=== PATIENT | male | born 1940 | race Caucasian/White ===

== ENCOUNTER → 2018-02-24 | Outpatient (CLI) | payer BC, MEDICARE | END | disposition home or self-care (01) | LOC: LABWHC1 09:56 | PROVIDERS: ATTEND Urology | DX: R97.20 Elevated prostate specific antigen [PSA] (principal) | CPT/HCPCS: 36415; 84153 ==

== ENCOUNTER → 2018-09-24 | Outpatient (CLI) | payer MEDICARE | END | disposition home or self-care (01) | LOC: LABWHC1 15:20 | PROVIDERS: ATTEND Urology | DX: R97.20 Elevated prostate specific antigen [PSA] (principal) | CPT/HCPCS: 36415; 84153 ==

== ENCOUNTER → 2019-09-24 | Outpatient (CLI) | payer MEDICARE | LOC: LABWHC1 10:16 | PROVIDERS: ATTEND Urology | DX: R97.20 Elevated prostate specific antigen [PSA] (principal) | CPT/HCPCS: 36415; 84153 ==

== ENCOUNTER 2023-04-19 10:21 | Emergency (ER) | payer MEDICARE ==
[2023-04-19] MEDS ORDERED: LIDOCAINE/EPINEPHR/TETRACAINE 5 ML BOTTLE TOPICAL ONE (10:29)
[2023-04-19] MEDS ORDERED: LIDOCAINE 1%-EPI 1:100,000 50 ML VIAL SQ ONE (10:29)
--- NOTE | 2023-04-19 10:42 | ED ---
Wound/Laceration HPI - General Chief Complaint: Skin/Abscess/Foreign Body Stated Complaint: Bleeding from Wound on L Ankle Time Seen by Provider: 04/19/23 10:22 Source: patient, RN notes reviewed Mode of arrival: EMS Limitations: no limitations - History of Present Illness Initial Comments: This is an 82-year-old male who presents to the emergency department for a bleeding wound on his left ankle. States that he tries to keep his body "very alkalotic" to flush out toxins. In this process, he has had a wound to the left ankle that popped up. States that his body is trying to push material out through this wound, and he occasionally picks at it. He tried to pick at this wound today, and it subsequently started to bleed. He had been unable to get the bleeding to stop, and subsequently called EMS. Denies any pain associated with this. He is not on any blood thinners, but states that he takes a pineapple extract that acts as a natural blood thinner. Denies any fevers, chills, sore throat, cough, dyspnea, chest pain, palpitations, abdominal pain, nausea, vomiting, diarrhea, back pain, or headaches. - Related Data Allergies Allergy/AdvReac Type Severity Reaction Status Date / Time No Known Allergies Allergy Verified 04/19/23 10:42 Review of Systems ROS Statement: Those systems with pertinent positive or pertinent negative responses have been documented in the HPI. ROS Other: All systems not noted in ROS Statement are negative. General Exam Limitations: no limitations General appearance: alert, in no apparent distress Head exam: Present: atraumatic, normocephalic, normal inspection Respiratory exam: Present: normal lung sounds bilaterally. Absent: respiratory distress, wheezes, rales, rhonchi, stridor Cardiovascular Exam: Present: regular rate, normal rhythm, normal heart sounds. Absent: systolic murmur, diastolic murmur, rubs, gallop, clicks Extremities exam: Present: other (1 cm circular wound to the medial aspect of the left ankle with active bleeding from a superficial vein.) Neurological exam: Present: alert, oriented X3, CN II-XII intact Psychiatric exam: Present: normal affect, normal mood Course Vital Signs 04/19/23 04/19/23 04/19/23 10:22 10:39 11:45 Temperature 96.8 F L 96.8 F L 97.6 F Pulse Rate 73 74 67 Respiratory 18 18 18 Rate Blood Pressure 188/105 188/105 190/91 O2 Sat by Pulse 99 99 98 Oximetry Procedures - Laceration Laceration #1 Consent Obtained: verbal consent Indication: laceration Site: lower extremity Size (cm): 1 Description: linear Depth: simple, single layer Type of Sutures: nylon Size of Sutures: 5-0 Number of Sutures: 2 (2 figure of 8 sutures) Technique: simple, interrupted Medical Decision Making - Medical Decision Making This is an 80-year-old male who presents to the emergency department for a bleeding wound. Was pt. sent in by a medical professional or institution? @ -No Did you speak to anyone other than the patient for history? @ -No Did you review nursing and triage notes? @ -Yes, and I agree, it is accurate with regards to the patient's symptoms. Were old charts reviewed? @ -No Differential Diagnosis? @ -Differential Excessive Bleeding: Venous injury, arterial injury, coagulopathy, this is not meant to be an all- inclusive list. EKG interpreted by me (3pts min.)? @ -Not obtained X-rays interpreted by me (1pt min.)? @ -Not obtained CT interpreted by me (1pt min.)? @ -Not obtained U/S interpreted by me (1pt. min.)? @ -Not obtained What testing was considered but not performed? (CT, X-rays, U/S, labs)? Why? @ -None What meds were considered but not given? Why? @ -None Did you discuss the management of the patient with other professionals? @ -No Did you reconcile home meds? @ -No Was smoking cessation discussed for >3mins.? @ -No Was critical care preformed (if so, how long)? @ -No Were there social determinants of health that impacted care today? How? (Homelessness, low income, unemployed, alcoholism, drug addiction, transportation, low edu. Level, literacy, decrease access to med. care, [facility], rehab)? @ -No Was there de-escalation of care discussed even if they declined? (Discuss DNR or withdrawal of care, Hospice)? @ -No What co-morbidities impacted this encounter? (DM, HTN, Smoking, COPD, CAD, Cancer, CVA, Hep., AIDS, mental health diagnosis, sleep apnea, morbid obesity)? @ -None Was patient admitted / discharged? @ -Discharged. Physical examination was most consistent with a bleeding varicose vein. LET was applied initially, which did slow the bleeding substantially. A [id number] suture was then used to tie this off and the bleeding stopped entirely. His blood pressure was elevated on arrival. Patient does not take any blood pressure medication at home or any prescription medication whatsoever. Patient advised that he will need to follow-up on this with his primary care provider. Also recommended checking his blood pressure at home and keeping a lot of these values. We also discussed risks of untreated elevated blood pressure, including heart attacks and strokes. Patient expresses understanding. He will otherwise return in 7-10 days for suture removal. Undiagnosed new problem with uncertain prognosis? @ -None Drug Therapy requiring intensive monitoring for toxicity (Heparin, Nitro, Insulin, Cardizem)? @ -None Were any procedures done? @ -Sutures for bleeding varicose vein Diagnosis/symptom? @ -Bleeding wound Acute, or Chronic, or Acute on Chronic? @ -Acute Uncomplicated (without systemic symptoms) or Complicated (systemic symptoms)? @ -Uncomplicated Side effects of treatment? @ -None Exacerbation, Progression, or Severe Exacerbation] @ -Not applicable Poses a threat to life or bodily function? @ -No Return precautions reviewed in depth, the patient is instructed to return to the emergency department with any new, worsening, or concerning symptoms. Patient verbalized understanding. This case was discussed in detail with the attending ED physician, Dr. Trujillo. Presentation, findings, and treatment plan discussed in detail as well. Disposition Clinical Impression: Bleeding from wound, Elevated BP without diagnosis of hypertension Disposition: HOME SELF-CARE Instructions (If sedation given, give patient instructions): Care For Your Stitches (ED) Additional Instructions: Return to the emergency department with any new, worsening, or concerning symptoms and in 7-10 days for removal of the stitches. Do not pick at this wound, as you may cause this problem to recur. Is patient prescribed a controlled substance at d/c from ED?: No Referrals: Dimitry Bryan [Primary Care Provider] - 1-2 days
[2023-04-19 10:46] VITALS: RESP 18
[2023-04-19 12:01] VITALS: BP 190/91; PULSE 67; TEMP 97.6
== END 2023-04-19 11:49 | disposition home or self-care (01) ==
LOC: EC 10:21
DX: S91.002A Unspecified open wound, left ankle, initial encounter (principal); I83.892 Varicose veins of left lower extremity with other complications; R03.0 Elevated blood-pressure reading, without diagnosis of hypertension; X58.XXXA Exposure to other specified factors, initial encounter
CPT/HCPCS: 12001; 99283

== ENCOUNTER 2023-10-20 11:52 | Emergency (ER) | payer MEDICARE ==
--- NOTE | 2023-10-20 12:06 | ED ---
Syncope HPI - General Chief Complaint: Syncope Stated Complaint: Dizziness Time Seen by Provider: 10/20/23 11:54 Source: patient, EMS, RN notes reviewed Mode of arrival: EMS Limitations: no limitations - History of Present Illness Initial Comments: This is an 82-year-old male who presents to the emergency department for a syncopal episode. Patient was standing up at [employer] and they were on the third song of the morning. He had started to feel dizzy and went to sit down. He took 2 glucose tablets, thinking his sugar might of dropped. He then woke up laying along the [employer] bench and was told that he passed out temporarily. When he sat up he drank orange juice. He then had his blood sugar checked after both glucose tablets and orange juice and was told that it was about 264. Other than the dizziness he did not have any symptoms prior to the syncopal episode. Denies any chest pain or shortness of breath. This has happened to him in the past when his blood sugar was low. States that he currently feels fine and has no complaints. MD Complaint: loss of consciousness - Related Data Previous Rx's Medication Instructions Recorded amLODIPine [Norvasc] 5 mg PO DAILY #30 tab 10/20/23 Allergies Allergy/AdvReac Type Severity Reaction Status Date / Time No Known Allergies Allergy Verified 10/20/23 11:59 Review of Systems ROS Statement: Those systems with pertinent positive or pertinent negative responses have been documented in the HPI. ROS Other: All systems not noted in ROS Statement are negative. Past Medical History Additional Past Medical History / Comment(s): Glaucoma. PVC-irregular heart beat History of Any Multi-Drug Resistant Organisms: None Reported Additional Past Surgical History / Comment(s): Ulcer Past Psychological History: No Psychological Hx Reported Smoking Status: Former smoker Past Alcohol Use History: None Reported Past Drug Use History: None Reported General Exam Limitations: no limitations General appearance: alert, in no apparent distress Head exam: Present: atraumatic, normocephalic, normal inspection Eye exam: Present: normal appearance, PERRL, EOMI. Absent: scleral icterus, conjunctival injection, periorbital swelling Respiratory exam: Present: normal lung sounds bilaterally. Absent: respiratory distress, wheezes, rales, rhonchi, stridor Cardiovascular Exam: Present: regular rate, normal rhythm, normal heart sounds. Absent: systolic murmur, diastolic murmur, rubs, gallop, clicks Neurological exam: Present: alert, oriented X3, CN II-XII intact Psychiatric exam: Present: normal affect, normal mood Skin exam: Present: warm, dry, intact, normal color. Absent: rash Course Vital Signs 10/20/23 10/20/23 10/20/23 11:54 11:59 12:54 Temperature 97.6 F Pulse Rate 69 65 Pulse Rate [ 64 [employer] ] Respiratory 16 16 Rate Blood Pressure 202/93 212/92 Blood Pressure [Right Arm Sitting] Blood Pressure [Right Arm Standing] Blood Pressure [Right Arm Supine] O2 Sat by Pulse 100 99 Oximetry 10/20/23 10/20/23 10/20/23 13:25 13:30 13:31 Temperature Pulse Rate Pulse Rate [ 85 86 87 [employer] ] Respiratory Rate Blood Pressure Blood Pressure 172/96 [Right Arm Sitting] Blood Pressure 171/103 [Right Arm Standing] Blood Pressure 189/105 [Right Arm Supine] O2 Sat by Pulse Oximetry 10/20/23 10/20/23 13:43 15:25 Temperature 97.8 F Pulse Rate 93 65 Pulse Rate [ [employer] ] Respiratory 18 18 Rate Blood Pressure 150/75 139/76 Blood Pressure [Right Arm Sitting] Blood Pressure [Right Arm Standing] Blood Pressure [Right Arm Supine] O2 Sat by Pulse 97 99 Oximetry Medical Decision Making - Medical Decision Making This is an 82 year old male who presents to the emergency department for a syncopal episode. Was pt. sent in by a medical professional or institution? @ -No Did you speak to anyone other than the patient for history? @ -No Did you review nursing and triage notes? @ -Yes, and I agree, it is accurate with regards to the patient's symptoms. Were old charts reviewed? @ -No Differential Diagnosis? @ -Differential Syncope: Valvular disease, hypertrophic cardiomyopathy, pulmonary embolism, tamponade, tachycardia, bradycardia, CT, hypovolemia, hemorrhage, dissection, anemia, intracranial hemorrhage, seizure, hypoglycemia, carbon monoxide poisoning, this is not meant to be an all-inclusive list. EKG interpreted by me (3pts min.)? @ -EKG interpreted by me demonstrating the following: Sinus rhythm with occasional PVCs. Ventricular rate 60 bpm, CT interval 209 ms, QRS duration 89 ms, QTc 415 ms. X-rays interpreted by me (1pt min.)? @ -Chest x-ray obtained, my interpretation identifies no localized consolidations or infiltrates. CT interpreted by me (1pt min.)? @ -Not obtained U/S interpreted by me (1pt. min.)? @ -Not obtained What testing was considered but not performed? (CT, X-rays, U/S, labs)? Why? @ -None What meds were considered but not given? Why? @ -None Did you discuss the management of the patient with other professionals? @ -No Did you reconcile home meds? @ -No Was smoking cessation discussed for >3mins.? @ -No Was critical care preformed (if so, how long)? @ -No Were there social determinants of health that impacted care today? How? (Homelessness, low income, unemployed, alcoholism, drug addiction, transportation, low edu. Level, literacy, decrease access to med. care, skilled nursing, rehab)? @ -No Was there de-escalation of care discussed even if they declined? (Discuss DNR or withdrawal of care, Hospice)? @ -No What co-morbidities impacted this encounter? (DM, HTN, Smoking, COPD, CAD, Cancer, CVA, Hep., AIDS, mental health diagnosis, sleep apnea, morbid obesity)? @ -DM, PVCs Was patient admitted / discharged? @ -Discharged. Lab work fairly unremarkable. Chest x-ray reveals no acute process. Patient fairly hypertensive on arrival with a blood pressure of 212/92. He ended up getting a total of 30 mg of hydralazine with improvement in blood pressure. He was also given IV fluids. Orthostatics obtained and found to be negative. Discussed with the patient that because his sugar was not c hecked when he started to feel dizzy and had the syncopal episode, and it was after he had glucose tablets and orange juice, we cannot say for sure whether or not this was related to a hypoglycemic episode. 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 Discussed with the patient that this may have been an arrhythmia contributing to the syncope episode. I did strongly advise admission with regards to the syncopal episode and hypertension, however patient refused. Advised that we should start him on a blood pressure medication, which he was agreeable with. Prescription for amlodipine provided with dosing instructions reviewed. 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 Undiagnosed new problem with uncertain prognosis? @ -None Drug Therapy requiring intensive monitoring for toxicity (Heparin, Nitro, Insulin, Cardizem)? @ -None Were any procedures done? @ -None Diagnosis/symptom? @ -Syncope, dizziness, hypertension Acute, or Chronic, or Acute on Chronic? @ -Acute Uncomplicated (without systemic symptoms) or Complicated (systemic symptoms)? @ -Uncomplicated Side effects of treatment? @ -None Exacerbation, Progression, or Severe Exacerbation] @ -Not applicable Poses a threat to life or bodily function? @ -This will depend on the cause Return precautions reviewed in depth, the patient is instructed to return to the emergency department with any new, worsening, or concerning symptoms. Patient verbalized understanding. This case was discussed in detail with the attending ED physician, Dr. Joseph. Presentation, findings, and treatment plan discussed in detail as well. - Lab Data Result diagrams: 10/20/23 12:23 10/20/23 12:23 Lab Results 10/20/23 10/20/23 10/20/23 Range/Units 12:23 12:23 12:23 WBC 8.9 (3.8-10.6) k/uL RBC 4.54 (4.30-5.90) m/uL Hgb 13.8 (13.0-17.5) gm/dL Hct 44.2 (39.0-53.0) % MCV 97.4 (80.0-100.0) fL MCH 30.3 (25.0-35.0) pg MCHC 31.1 (31.0-37.0) g/dL RDW 12.9 (11.5-15.5) % Plt Count 266 (150-450) k/uL MPV 7.6 Neutrophils % 74 % Lymphocytes % 16 % Monocytes % 7 % Eosinophils % 1 % Basophils % 0 % Neutrophils # 6.6 (1.3-7.7) k/uL Lymphocytes # 1.4 (1.0-4.8) k/uL Monocytes # 0.6 (0-1.0) k/uL Eosinophils # 0.1 (0-0.7) k/uL Basophils # 0.0 (0-0.2) k/uL PT 10.6 (10.0-12.5) sec INR 1.0 (<1.2) APTT 23.7 (22.0-30.0) sec Sodium 136 L (137-145) mmol/L Potassium 3.9 (3.5-5.1) mmol/L Chloride 98 (98-107) mmol/L Carbon Dioxide 29 (22-30) mmol/L Anion Gap 9 mmol/L BUN 31 H (9-20) mg/dL Creatinine 0.86 (0.66-1.25) mg/dL Est GFR (CKD-EPI)AfAm >90 (>60 ml/min/1.73 sqM) Est GFR (CKD-EPI)NonAf 81 (>60 ml/min/1.73 sqM) Glucose 230 H (74-99) mg/dL POC Glucose (mg/dL) (70-110) mg/dL POC Glu Travel Specialist ID Calcium 9.4 (8.4-10.2) mg/dL Magnesium 2.1 (1.6-2.3) mg/dL Total Bilirubin 0.4 (0.2-1.3) mg/dL AST 34 (17-59) U/L ALT 35 (4-49) U/L Alkaline Phosphatase 103 (38-126) U/L Troponin I (0.000-0.034) ng/mL Total Protein 6.9 (6.3-8.2) g/dL Albumin 4.1 (3.5-5.0) g/dL 10/20/23 10/20/23 10/20/23 Range/Units 12:23 14:04 15:12 WBC (3.8-10.6) k/uL RBC (4.30-5.90) m/uL Hgb (13.0-17.5) gm/dL Hct (39.0-53.0) % MCV (80.0-100.0) fL MCH (25.0-35.0) pg MCHC (31.0-37.0) g/dL RDW (11.5-15.5) % Plt Count (150-450) k/uL MPV Neutrophils % % Lymphocytes % % Monocytes % % Eosinophils % % Basophils % % Neutrophils # (1.3-7.7) k/uL Lymphocytes # (1.0-4.8) k/uL Monocytes # (0-1.0) k/uL Eosinophils # (0-0.7) k/uL Basophils # (0-0.2) k/uL PT (10.0-12.5) sec INR (<1.2) APTT (22.0-30.0) sec Sodium (137-145) mmol/L Potassium (3.5-5.1) mmol/L Chloride (98-107) mmol/L Carbon Dioxide (22-30) mmol/L Anion Gap mmol/L BUN (9-20) mg/dL Creatinine (0.66-1.25) mg/dL Est GFR (CKD-EPI)AfAm (>60 ml/min/1.73 sqM) Est GFR (CKD-EPI)NonAf (>60 ml/min/1.73 sqM) Glucose (74-99) mg/dL POC Glucose (mg/dL) 139 H 153 H (70-110) mg/dL POC Glu Travel Specialist ID Can, Katerine Can, Katerine Calcium (8.4-10.2) mg/dL Magnesium (1.6-2.3) mg/dL Total Bilirubin (0.2-1.3) mg/dL AST (17-59) U/L ALT (4-49) U/L Alkaline Phosphatase (38-126) U/L Troponin I <0.012 (0.000-0.034) ng/mL Total Protein (6.3-8.2) g/dL Albumin (3.5-5.0) g/dL - Radiology Data Radiology results: report reviewed, image reviewed Disposition Clinical Impression: Dizziness, Hypertension, Syncope Disposition: HOME SELF-CARE Instructions (If sedation given, give patient instructions): Syncope (ED), Hypertension (ED), Dizziness (ED) Additional Instructions: Return to the emergency department with any new, worsening, or concerning symptoms. Take the amlodipine daily. Check your blood pressure at home and keep a log of these values. 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 Prescriptions: amLODIPine [Norvasc] 5 mg PO DAILY #30 tab Is patient prescribed a controlled substance at d/c from ED?: No Referrals: Dimitry Bryan [Primary Care Provider] - 1-2 days Time of Disposition: 13:51
[2023-10-20] MEDS: SODIUM CHLORIDE 0.9% 1,000 ML IV STA (12:11)
[2023-10-20 12:40] LABS: Basophils % (A) 0 %; Eosinophils # (A) 0.1 k/uL (0-0.7); Eosinophils % (A) 1 %; HCT 44.2 % (39.0-53.0); HGB 13.8 gm/dL (13.0-17.5); Lymphocytes # (A) 1.4 k/uL (1.0-4.8); Lymphocytes % (A) 16 %; MCH 30.3 pg (25.0-35.0); MCHC 31.1 g/dL (31.0-37.0); MCV 97.4 fL (80.0-100.0); Mean Platelet Volume 7.6; Monocytes # (A) 0.6 k/uL (0-1.0); Monocytes % (A) 7 %; Neutrophils # (A) 6.6 k/uL (1.3-7.7); Neutrophils % (A) 74 %; Platelet Count 266 k/uL (150-450); RBC 4.54 m/uL (4.30-5.90); RDW 12.9 % (11.5-15.5); WBC 8.9 k/uL (3.8-10.6)
[2023-10-20 12:56] LABS: ALT 35 U/L (4-49); AST 34 U/L (17-59); African American GFR (CKD) >90 (>60 ml/min/1.73 sqM); Albumin 4.1 g/dL (3.5-5.0); Alkaline Phosphatase 103 U/L (38-126); Anion Gap 9 mmol/L; Blood Urea Nitrogen 31 mg/dL (9-20); Calcium 9.4 mg/dL (8.4-10.2); Carbon Dioxide 29 mmol/L (22-30); Chloride 98 mmol/L (98-107); Glucose 230 mg/dL (74-99); Magnesium 2.1 mg/dL (1.6-2.3); Non-African American GFR(CKD) 81 (>60 ml/min/1.73 sqM); Potassium 3.9 mmol/L (3.5-5.1); Sodium 136 mmol/L (137-145); Total Bilirubin 0.4 mg/dL (0.2-1.3); Total Protein 6.9 g/dL (6.3-8.2)
[2023-10-20] MEDS: hydrALAZINE HCL 20 MG/ML 1 ML VIAL IVP STA ×2 (12:59→13:33)
--- NOTE | 2023-10-20 13:05 | XR ---
EXAMINATION TYPE: XR chest 2V DATE OF EXAM: 10/20/2023 12:34 PM CLINICAL INDICATION:Male, 82 years old with history of syncope; [facility] COMPARISON: None TECHNIQUE: XR chest 2V Frontal and lateral views of the chest. FINDINGS: Lungs/Pleura: There is no evidence of pleural effusion, focal consolidation, or pneumothorax. Pulmonary vascularity: Unremarkable. Heart/mediastinum: Cardiomediastinal silhouette is unremarkable. Musculoskeletal: No acute osseous pathology. IMPRESSION: No acute cardiopulmonary disease/process.
[2023-10-20 14:06] LABS: Glucose,Whole Blood 139 mg/dL (70-110)
[2023-10-20 14:11] LABS: Partial Thromboplastin Time 23.7 sec (22.0-30.0); Prothrombin Time 10.6 sec (10.0-12.5)
[2023-10-20 14:13] VITALS: RESP 18
[2023-10-20 15:14] LABS: Glucose,Whole Blood 153 mg/dL (70-110)
[2023-10-20 15:30] VITALS: BP 139/76; PULSE 65; TEMP 97.8
== END 2023-10-20 15:26 | disposition home or self-care (01) ==
LOC: EC 11:52
DX: R42 Dizziness and giddiness (principal); R55 Syncope and collapse; I10 Essential (primary) hypertension; E11.9 Type 2 diabetes mellitus without complications; I49.3 Ventricular premature depolarization; Z87.891 Personal history of nicotine dependence
CPT/HCPCS: 36415; 93005; 80053; 83735; 84484; 85025; 85610; 85730; 71046; 99285; 96374; 96376; 96361; J0360